=== PATIENT | female | born 1985 ===

== ENCOUNTER 2017-11-08 11:27 | Inpatient (IN) | payer MEDICAID ==
--- NOTE | 2017-11-08 12:05 | ED Physician Chart ---
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 Pain, A/N/V/D/C, fever, chills, or urinary s/s Historian:: Patient, Family Member Review:: Nurse's Note Reviewed ED Review of Systems - Review of Systems General/Constitutional: No fever, No chills, No weight loss, No weakness, No diaphoresis, No edema, No loss of appetite Skin: No skin lesions, No rash, No bruising Head: No headache, No light-headedness Eyes: No loss of vision, No pain, No diplopia ENT: No earache, No nasal drainage, No sore throat, No tinnitus Neck: No neck pain, No swelling, No thyromegaly, No stiffness, No mass noted Cardio Vascular: No chest pain, No palpitations, No PND, No orthopnea, No edema Pulmonary: No SOB, No cough, No sputum, No wheezing GI: No nausea, No vomiting, No diarrhea, No pain, No melena, No hematochezia, No constipation, No hematemesis G/U: No dysuria, No frequency, No hematuria, No nacturia Member Certification Manager: No vaginal discharge, No abnormal vaginal bleed, No contraction Musculoskeletal: No bone or joint pain, No back pain, No muscle pain Endocrine: No polyuria, No polydipsia Psychiatric: No prior psych history, No depression, Anxiety, No suicidal ideation, No homicidal ideation, No auditory hallucination, No visual hallucination Hematopoietic: No bruising, No lymphadenopathy Allergic/Immuno: No urticaria, No angioedema Neurological: No syncope, No focal symptoms, No weakness, No paresthesia, No headache, No seizure, No dizziness, No confusion, No vertigo ED Past Medical History - Past Medical History Obtainable: Yes Past Medical History: No significant medical hx Family History: None Social History: Smoker, Alcohol, No Drug Use, Surgical History: None Psychiatricy History: None Medication: Reviewed ED Physical Exam - Physical Examination General/Constitutional: Awake, Well-developed, well-nourished, Alert, No distress, GCS 15, Non-toxic appearing, Ambulatory Head: Atraumatic Eyes: Lids, conjuctiva normal, PERRL, EOMI Skin: Nl inspection, No rash, No skin lesions, No ecchymosis, Well hydrated, No lymphadenopathy ENMT: External ears, nose nl, TM canals nl, Nasal exam nl, Lips, teeth, gums nl , Oropharynx nl, Tonsils nl Neck: Nontender, Full ROM w/o pain, No JVD, No nuchal rigidity, No bruit, No mass, No stridor Other Neck comments:: supple; no meningeal signs; no cervical tenderness; no bruits Respiratory: Nl effort/Exclusion, Clear to Auscultation, No Wheeze/Rhonchi/Rales Cardio Vascular: RRR, No murmur, gallop, rubs, NL S1 S2, Carotid/Femoral/Distal pulses equal bilaterally GI: No tenderness/rebounding/guarding, No organomegaly, No hernia, Normal BS's, Nondistended, No mass/bruits, No McBurney tenderness Other GI comments:: no pulsatile masses : No CVA tenderness Extremities: No tenderness or effusion, Full ROM, normal strength in all extremities, No edema, Normal digits & nails Neuro/Psych: Alert/oriented, DTR's symmetric, Normal sensory exam, Normal motor strength, Judgement/insight normal, Mood normal, Normal gait, No focal deficits Misc: Normal back, No paraspinal tenderness ED Labs/Radiology/EKG Results - Lab Results Comments:: Na+: 134 - Radiology Results Comments:: NAD - EKG Interpretations EKG Time:: 12:45 Rate & Rhythm: 92; NSR Comments:: non-specific st-t changes ED Septic Shock - . Is Septic Shock (SBP<90, OR Lactate>4 mmol\L) present?: No ED Reassessment (Disposition) - Reassessment Reassessment Condition:: Improved - Diagnosis Diagnosis:: Dx: Hyponatremia; Dehydration; Alcohol Withdrawal; Alcholism; Anxiety Reaction; Substance Abuse - Aftercare/Follow up Instructions Aftercare/Follow-Up Instructions:: Counseled pt regarding lab results/diagnosis & need follow up, Counseled pt & family regarding lab results/diagnosis & need follow up - Patient Disposition Discharge/Transfer:: Acute Care w/in this hosp Accepting Physician:: Dr. Celis Time Called:: 1400 Time Responded:: 14:00 Admitted to:: Med/Surg Spoke to:: Dr. Celis Admitting Medical Physician:: Dr. Celis Condition at Disposition:: Stable, Improved
[2017-11-08] MEDS ORDERED: Sodium Chloride 0.9% 1,000 ML IV ONE (12:06)
[2017-11-08] MEDS ORDERED: Multivitamin Inj 10 ML, Thiamine HCL 100 MG, Magnesium Sulfate 2 GM, Folic Acid 1 MG in... IV ONE (12:09)
[2017-11-08 12:30] LABS: % BASOPHILS 0.1 % (0.0-2.0); % EOSINOPHILS 3.3 % (0.0-5.0); % LYMPHOCYTES 13.6 % (20.0-50.0); % MONOCYTES 6.1 % (2.0-10.0); % NEUTROPHILS 76.9 % (40.0-80.0); EOSINOPHILE ABSOLUTE 0.3 Th/cmm (0.1-0.4); HEMATOCRIT 38.3 % (41.0-60); HEMOGLOBIN 13.1 gm/dL (12-16); LYMPHOCYTE ABSOLUTE 1.1 Th/cmm (1.5-3.0); MEAN CELL VOLUME 83.5 fl (81-100); MEAN CORPUSCULAR HEMOGLOBIN 28.5 pg (27.0-31.0); MEAN CORPUSCULAR HGB CONC 34.2 pg (28.0-36.0); MEAN PLATELET VOLUME 7.1 fl; MONOCYTE ABSOLUTE 0.5 Th/cmm (0.3-1.0); NEUTROPHILE ABSOLUTE 5.9 Th/cmm (1.8-8.0); PLATELET COUNT 319 Th/cmm (150-400); RED BLOOD COUNT 4.59 Mil/cmm (3.80-5.10); RED CELL DISTRIBUTION WIDTH 13.2 % (11.5-20.0); WHITE BLOOD COUNT 7.8 Th/cmm (4.8-10.8)
[2017-11-08 12:47] LABS: ALB/GLOB RATIO 1.6 (1.0-1.8); ALBUMIN 4.1 gm/dL (3.7-5.3); ALKALINE PHOSPHATASE 61 U/L (34-104); ANION GAP 7.1 (7.0-16.0); BILIRUBIN,TOTAL 0.5 mg/dL (0.3-1.0); BUN - UREA NITROGEN 7 mg/dL (7-25); CALCIUM SERUM 8.9 mg/dL (8.6-10.3); CARBON DIOXIDE 25.1 mEq/L (21.0-31.0); CHLORIDE 106 mEq/L (98-107); CHOLESTEROL 140 mg/dL (<200); CREATININE - SERUM 0.6 mg/dL (0.6-1.2); CREATININE KINASE 91 U/L (30-223); GFR AFRICAN-AMERICAN > 60.0 ml/min (>90); GFR NON AFRICAN-AMERICAN > 60.0 ml/min; GLUCOSE 87 mg/dL (70-105); HDL -HIGH DENSITY LIPOPROTEIN 62 mg/dL (23-92); POTASSIUM SERUM 4.2 mEq/L (3.5-5.1); SGOT 23 U/L (13-39); SGPT/ALT 18 U/L (7-52); SODIUM SERUM 134 mEq/L (136-145); TOTAL PROTEIN,SERUM 6.7 gm/dL (6.0-8.3); TRIGLYCERIDES 128 mg/dL (<150)
[2017-11-08 12:59] LABS: INR 0.99 (0.5-1.4); PROTHROMBIN TIME (TEST) 10.3 SECONDS (9.5-11.5)
[2017-11-08 16:06] LABS: AMPHETAMINE URINE NEGATIVE (NEGATIVE); BARBITURATES URINE NEGATIVE (NEGATIVE); CANNABINOID THC NEGATIVE (NEGATIVE); COCAINE METABOLITE QUAL URINE NEGATIVE (NEGATIVE); METHADONE URINE NEGATIVE (NEGATIVE); METHAMPHETAMINES QUAL URINE NEGATIVE (NEGATIVE); OPIATES (MORPHINE) QUAL. URINE NEGATIVE (NEGATIVE); PHENCYCLIDINE (PCP) URINE NEGATIVE (NEGATIVE); TRICYCLICS (TCA) QUAL. URINE NEGATIVE (NEGATIVE)
[2017-11-08 16:07] LABS: BENZODIAZEPINES QUAL URINE POSITIVE (NEGATIVE)
[2017-11-08] MEDS: D5-0.45NS 1,000 ML IV SCH (23:31)
[2017-11-09 02:44] VITALS: BP 125/83
[2017-11-09 07:32] LABS: % BASOPHILS 0.7 % (0.0-2.0); % EOSINOPHILS 5.2 % (0.0-5.0); % LYMPHOCYTES 17.6 % (20.0-50.0); % MONOCYTES 8.1 % (2.0-10.0); % NEUTROPHILS 68.4 % (40.0-80.0); EOSINOPHILE ABSOLUTE 0.3 Th/cmm (0.1-0.4); HEMATOCRIT 35.7 % (41.0-60); MEAN CELL VOLUME 83.9 fl (81-100); MEAN CORPUSCULAR HEMOGLOBIN 28.2 pg (27.0-31.0); MEAN CORPUSCULAR HGB CONC 33.6 pg (28.0-36.0); MEAN PLATELET VOLUME 7.4 fl; MONOCYTE ABSOLUTE 0.5 Th/cmm (0.3-1.0); PLATELET COUNT 265 Th/cmm (150-400); RED BLOOD COUNT 4.25 Mil/cmm (3.80-5.10); RED CELL DISTRIBUTION WIDTH 13.3 % (11.5-20.0)
[2017-11-09 07:33] LABS: WHITE BLOOD COUNT 5.8 Th/cmm (4.8-10.8)
[2017-11-09 07:36] LABS: ALB/GLOB RATIO 1.5 (1.0-1.8); ALBUMIN 3.5 gm/dL (3.7-5.3); ALKALINE PHOSPHATASE 67 U/L (34-104); ANION GAP 8.8 (7.0-16.0); BILIRUBIN,TOTAL 0.3 mg/dL (0.3-1.0); BUN - UREA NITROGEN 11 mg/dL (7-25); CALCIUM SERUM 8.3 mg/dL (8.6-10.3); CARBON DIOXIDE 20.4 mEq/L (21.0-31.0); CHLORIDE 109 mEq/L (98-107); CREATININE - SERUM 0.6 mg/dL (0.6-1.2); GFR AFRICAN-AMERICAN > 60.0 ml/min (>90); GFR NON AFRICAN-AMERICAN > 60.0 ml/min; GLUCOSE 109 mg/dL (70-105); MAGNESIUM 2.3 mg/dL (1.9-2.7); POTASSIUM SERUM 4.2 mEq/L (3.5-5.1); SGOT 17 U/L (13-39); SGPT/ALT 14 U/L (7-52); SODIUM SERUM 134 mEq/L (136-145); TOTAL PROTEIN,SERUM 5.9 gm/dL (6.0-8.3)
[2017-11-09] MEDS: Thiamine 100 mg/mL 2mL Vial IM SCH (09:00)
[2017-11-09] MEDS: Multivitamin w/ Minerals Tab PO SCH (09:01)
[2017-11-09] MEDS: Pantoprazole 40 mg EC Tab PO SCH ×2 (11:05→16:23)
[2017-11-09] MEDS: D5-0.45NS 1,000 ML IV SCH ×2 (11:05)
--- NOTE | 2017-11-09 11:30 | History & Physical ---
ADMIT DATE: 11/09/2017 PATIENT'S IDENTIFICATION: A 32-year-old female. CHIEF COMPLAINT: Anxiety. "I want to quit drinking alcohol." HISTORY OF PRESENT ILLNESS: A 32-year-old female with longstanding history of alcohol abuse, has been going in and out of the Emergency Room, also has diagnosis of anxiety, depression, presented to Emergency Room at [facility] because of increasing anxiety and drinking heavily and wanted to quit alcohol. When the patient was arrived in the Emergency Room, the patient had an extreme anxiety and impending DT. The patient is now being admitted for further treatment. PAST MEDICAL HISTORY: Remarkable for depression. MEDICATIONS AT HOME: Lexapro. ALLERGIES: None. SOCIAL HISTORY: Lives with family. The patient has history of smoking cigarette and drinking alcohol use, denies any street drug use. FAMILY MEDICAL HISTORY: Remarkable for alcoholism. REVIEW OF SYSTEMS: The patient complained of nausea, vomiting, a little bit of blood in the vomit. Denies any headache. Denies any blurred vision or double vision. The patient is very tearful. Denies any chest pain. Denies any shortness of breath. Denies any palpitation. Denies any wheezing, dizziness. Denies any seizure or syncopal episode. Denies any hematemesis. Denies any hematochezia or melena. No vaginal discharge. PHYSICAL EXAMINATION: GENERAL: Alert, awake, oriented, lying in the bed without any acute distress. VITAL SIGNS: Temperature reported 97.4, pulse is 100, respiratory rate is 18, blood pressure 130/90. HEENT: Normocephalic, atraumatic. Extraocular muscles are intact. Tongue more pink and coated. Poor dentition noted. No oral lesion, no exudate. No sinus tenderness. External auditory canal and tympanic membranes are well visualized. NECK: Supple, no JVD, no hepatojugular reflex. No lymphadenopathy, thyromegaly, or carotid bruit. HEART: Both heart sounds are regular. No S3, no S4, no murmurs. CHEST: Lung equal in expansion, no wheezing, no crackles. ABDOMEN: Soft. No guarding, no rigidity. Bowel sounds are present. No palpable mass. EXTREMITIES: No edema, no cyanosis or clubbing present, +2, no calf tenderness noted. NEUROLOGIC: The patient is alert, awake, oriented to time, place, person. 2-12 cranial nerves are intact. Power in upper and lower extremities 5+. Sensory to light touch intact. Babinski in both toes are going down. No cerebellar sign. AVAILABLE DIAGNOSTIC DATA: Performed in the Emergency Room has been reviewed. CLINICAL IMPRESSION: 1. Alcoholism. 2. Anxiety, depression. 3. Alcohol-induced gastritis. 4. Impending DT. PLAN: 1. Admit this patient to telemetry unit. 2. IV fluid. 3. Multivitamin, folic acid, thiamine. 4. Librium. 5. P.r.n. Ativan. 6. Protonix. 7. Psych consult. 8. Antidepression. 9. General nursing care. 10. Cardiac monitoring. 11. Follow lab. 12. Follow consult recommendation. 13. Care plan reviewed and discussed with staff. JOB# [id number]
--- NOTE | 2017-11-10 01:08 | History & Physical ---
ADMIT DATE: 11/09/2017 HISTORY OF PRESENT ILLNESS: The patient is a 32-year-old female, very long history of alcoholism years, if not decades. The patient is drinking 4 bottles of wine religiously for the past 6 months, bouts of sobriety for as long as a year, drinking about 16 to 20 drink equivalents per day, very depressed, sad, alcohol affecting her mood. Note, she has been depressed for many years. Sleeping "off and on". Okay appetite. She is hopeful. She is motivated. She wants to go to residential. When she leaves the hospital, very fearful of relapsing. The patient notes she had a seizure about 2 years ago from withdrawal. No delirium tremens. No perceptual disturbances. She has never been in the ICU before. PAST PSYCH HISTORY: No suicide history, but long history of depression. FAMILY HISTORY: Aunts and uncles alcoholism. SOCIAL HISTORY: Born in [place], engaged, fiancee at bedside. His name is Art. Also smoking cigarettes along with alcohol. The patient has an [id number] son. Psychoeducation discussed about the importance of quitting, especially nicotine given that she is still smoking, increased risk of asthma for the son. The patient has been to AA in the past. No current participation. MEDICATIONS: Noted. MEDICAL HISTORY: Noted. MENTAL STATUS EXAMINATION: Stated age. Fair eye contact. Speech within normal limits. Mood depressed. Affect tearful. Thought processes were linear. No SI, no HI. No psychotic symptoms. Insight and judgment fair. She is very motivated to stop drinking. PROVISIONAL DIAGNOSES: Major depression, recurrent, unspecified; anxiety, unspecified; alcohol use disorder, severe; substance-induced mood disorder. UNDER MEDICAL: Please see full H and P. RECOMMENDATIONS AND PLAN: Vitals reviewed. The patient does seem to be detoxing to some extent from alcohol. We will continue to monitor very closely. We will also increase dosing of Librium. She can tolerate a higher dose and in fact needs a higher dose. Her dose equivalent needs to be replacing the 16-20 drinks that she was drinking per day. We will monitor for any signs and symptoms of sedation. We will also start Neurontin and continue Zoloft and the patient may benefit from clonidine. Will also contact social work to see if she can be accepted to a residential. JOB# [id number]
[2017-11-10 06:00] LABS: % BASOPHILS 0.6 % (0.0-2.0); % EOSINOPHILS 6.5 % (0.0-5.0); % LYMPHOCYTES 23.6 % (20.0-50.0); % MONOCYTES 10.7 % (2.0-10.0); % NEUTROPHILS 58.6 % (40.0-80.0); EOSINOPHILE ABSOLUTE 0.3 Th/cmm (0.1-0.4); HEMATOCRIT 37.9 % (41.0-60); HEMOGLOBIN 12.6 gm/dL (12-16); LYMPHOCYTE ABSOLUTE 1.1 Th/cmm (1.5-3.0); MEAN CELL VOLUME 84.5 fl (81-100); MEAN CORPUSCULAR HEMOGLOBIN 28.1 pg (27.0-31.0); MEAN CORPUSCULAR HGB CONC 33.2 pg (28.0-36.0); MEAN PLATELET VOLUME 7.3 fl; MONOCYTE ABSOLUTE 0.5 Th/cmm (0.3-1.0); NEUTROPHILE ABSOLUTE 2.6 Th/cmm (1.8-8.0); PLATELET COUNT 269 Th/cmm (150-400); RED BLOOD COUNT 4.48 Mil/cmm (3.80-5.10); RED CELL DISTRIBUTION WIDTH 13.2 % (11.5-20.0); WHITE BLOOD COUNT 4.5 Th/cmm (4.8-10.8)
[2017-11-10 06:10] LABS: ALB/GLOB RATIO 1.5 (1.0-1.8); ALBUMIN 3.8 gm/dL (3.7-5.3); ALKALINE PHOSPHATASE 79 U/L (34-104); ANION GAP 10.5 (7.0-16.0); BILIRUBIN,TOTAL 0.3 mg/dL (0.3-1.0); BUN - UREA NITROGEN 8 mg/dL (7-25); CALCIUM SERUM 8.8 mg/dL (8.6-10.3); CARBON DIOXIDE 20.6 mEq/L (21.0-31.0); CHLORIDE 105 mEq/L (98-107); CREATININE - SERUM 0.6 mg/dL (0.6-1.2); GFR AFRICAN-AMERICAN > 60.0 ml/min (>90); GFR NON AFRICAN-AMERICAN > 60.0 ml/min; GLUCOSE 104 mg/dL (70-105); POTASSIUM SERUM 4.1 mEq/L (3.5-5.1); SGOT 16 U/L (13-39); SGPT/ALT 12 U/L (7-52); SODIUM SERUM 132 mEq/L (136-145); TOTAL PROTEIN,SERUM 6.4 gm/dL (6.0-8.3)
[2017-11-10] MEDS: Pantoprazole 40 mg EC Tab PO SCH (08:33)
[2017-11-10] MEDS: Multivitamin w/ Minerals Tab PO SCH (08:33)
[2017-11-10] MEDS: Thiamine 100 mg/mL 2mL Vial IM SCH (08:33)
--- NOTE | 2017-11-10 09:18 | General Progress Note ---
Subjective - Review of Systems Subjective: Patient is seen and examined. Patient is feeling better. psych input greatly appreciated. Objective - Results Result Diagrams: 11/10/17 05:06 11/10/17 05:06 Recent Labs: Laboratory Last Values WBC 4.5 Th/cmm (4.8-10.8) L D 11/10/17 05:06 RBC 4.48 Mil/cmm (3.80-5.10) 11/10/17 05:06 Hgb 12.6 gm/dL (12-16) 11/10/17 05:06 Hct 37.9 % (41.0-60) L 11/10/17 05:06 MCV 84.5 fl (81-100) 11/10/17 05:06 MCH 28.1 pg (27.0-31.0) 11/10/17 05:06 MCHC Differential 33.2 pg (28.0-36.0) 11/10/17 05:06 RDW 13.2 % (11.5-20.0) 11/10/17 05:06 Plt Count 269 Th/cmm (150-400) 11/10/17 05:06 MPV 7.3 fl 11/10/17 05:06 Neutrophils % 58.6 % (40.0-80.0) 11/10/17 05:06 Lymphocytes % 23.6 % (20.0-50.0) 11/10/17 05:06 Monocytes % 10.7 % (2.0-10.0) H 11/10/17 05:06 Eosinophils % 6.5 % (0.0-5.0) H 11/10/17 05:06 Basophils % 0.6 % (0.0-2.0) 11/10/17 05:06 PT 10.3 SECONDS (9.5-11.5) 11/08/17 12:19 INR 0.99 (0.5-1.4) 11/08/17 12:19 Sodium 132 mEq/L (136-145) L 11/10/17 05:06 Potassium 4.1 mEq/L (3.5-5.1) 11/10/17 05:06 Chloride 105 mEq/L (98-107) 11/10/17 05:06 Carbon Dioxide 20.6 mEq/L (21.0-31.0) L 11/10/17 05:06 Anion Gap 10.5 (7.0-16.0) 11/10/17 05:06 BUN 8 mg/dL (7-25) 11/10/17 05:06 Creatinine 0.6 mg/dL (0.6-1.2) 11/10/17 05:06 Est GFR ( Amer) > 60.0 ml/min (>90) 11/10/17 05:06 Est GFR (Non-Af Amer) > 60.0 ml/min 11/10/17 05:06 BUN/Creatinine Ratio 13.3 11/10/17 05:06 Glucose 104 mg/dL (70-105) 11/10/17 05:06 Calcium 8.8 mg/dL (8.6-10.3) 11/10/17 05:06 Magnesium 2.3 mg/dL (1.9-2.7) 11/09/17 06:32 Total Bilirubin 0.3 mg/dL (0.3-1.0) 11/10/17 05:06 AST 16 U/L (13-39) 11/10/17 05:06 ALT 12 U/L (7-52) 11/10/17 05:06 Alkaline Phosphatase 79 U/L (34-104) 11/10/17 05:06 Creatine Kinase 91 U/L (30-223) 11/08/17 12:19 Troponin I < 0.01 ng/mL (0.01-0.05) L 11/08/17 12:19 B-Natriuretic Peptide 16.1 pg/mL (5.0-100.0) 11/08/17 12:19 Total Protein 6.4 gm/dL (6.0-8.3) 11/10/17 05:06 Albumin 3.8 gm/dL (3.7-5.3) 11/10/17 05:06 Globulin 2.6 gm/dL 11/10/17 05:06 Albumin/Globulin Ratio 1.5 (1.0-1.8) 11/10/17 05:06 Triglycerides 128 mg/dL (<150) 11/08/17 12:19 Cholesterol 140 mg/dL (<200) 11/08/17 12:19 LDL Cholesterol Direct 69 mg/dL (75-193) L 03/12/18 12:19 HDL Cholesterol 62 mg/dL (23-92) 11/08/17 12:19 Serum , Qual NEGATIVE (NEGATIVE) 11/08/17 12:19 Urine Opiates Screen NEGATIVE (NEGATIVE) 11/08/17 14:15 Urine Methadone Screen NEGATIVE (NEGATIVE) 11/08/17 14:15 Ur Barbiturates Screen NEGATIVE (NEGATIVE) 11/08/17 14:15 Ur Tricyclics Screen NEGATIVE (NEGATIVE) 11/08/17 14:15 Ur Phencyclidine Scrn NEGATIVE (NEGATIVE) 11/08/17 14:15 Amphetamines Screen NEGATIVE (NEGATIVE) 11/08/17 14:15 U Methamphetamines Scrn NEGATIVE (NEGATIVE) 11/08/17 14:15 U Benzodiazepines Scrn POSITIVE (NEGATIVE) H 11/08/17 14:15 U Cocaine Metab Screen NEGATIVE (NEGATIVE) 11/08/17 14:15 U Cannabinoids Screen NEGATIVE (NEGATIVE) 11/08/17 14:15 Ethyl Alcohol < 10 mg/dL (0-10) 11/08/17 12:19 - Physical Exam Vitals and I&O: Vital Signs Temp 97.3 F 11/10/17 08:00 Pulse 72 11/10/17 08:00 Resp 18 11/10/17 08:00 BP 113/71 11/10/17 08:00 Pulse Ox 95 11/10/17 08:00 Intake & Output 11/09/17 11/10/17 11/10/17 18:59 06:59 18:59 Intake Total 1650 Balance 1650 Weight (lbs) 80.286 kg 77.973 kg Intake: Intake, IV Amount 1000 D5-0.45NS 1,000 ml @ 125 1000 mls/hr IV .Q8H [facility] Rx#: [id number] Oral 650 Other: # Voids 3 # Bowel Movements 1 Active Medications: Current Medications Acetaminophen (Tylenol) 650 mg PO Q4H PRN PRN Reason: Mild Pain/Headache/T above 101 Stop: 01/07/18 18:36 Last Admin: 11/09/17 17:37 Dose: 650 mg Chlordiazepoxide (Librium) 50 mg PO TID SANDEEP PRN Reason: Protocol Stop: 01/08/18 11:46 Last Admin: 11/09/17 20:50 Dose: 50 mg Folic Acid (Folate) 1 mg PO DAILY [facility] Stop: 01/08/18 08:59 Last Admin: 11/10/17 08:33 Dose: 1 mg Gabapentin (Neurontin) 100 mg PO TID [facility] Stop: 01/08/18 13:59 Last Admin: 11/10/17 08:33 Dose: 100 mg Dextrose/Sodium Chloride (D5-0.45ns) 1,000 mls @ 125 mls/hr IV .Q8H [facility] Stop: 01/07/18 18:44 Last Admin: 11/09/17 11:05 Dose: 125 mls/hr Lorazepam (Ativan) 1 mg IVP Q4H PRN; Protocol PRN Reason: Anxiety/Agitation Stop: 01/07/18 18:36 Last Admin: 11/10/17 08:29 Dose: 1 mg Ondansetron HCl (Zofran) 4 mg IVP Q6H PRN PRN Reason: Nausea / Vomiting Stop: 01/07/18 18:36 Pantoprazole Sodium (Protonix) 40 mg PO BID [facility] Stop: 01/08/18 10:44 Last Admin: 11/10/17 08:33 Dose: 40 mg Sertraline HCl (Zoloft) 50 mg PO DAILY SANDEEP PRN Reason: Protocol Stop: 01/08/18 12:59 Last Admin: 11/10/17 08:32 Dose: 50 mg Thiamine HCl (Vitamin B1) 100 mg IM DAILY [facility] Stop: 01/08/18 08:59 Last Admin: 11/10/17 08:33 Dose: 100 mg General: Alert, Oriented x3, Cooperative HEENT: Atraumatic, PERRLA, EOMI, Mucous membr. moist/pink Neck: Supple, JVD Cardiovascular: Regular rate, Normal S1, Normal S2 Lungs: Clear to auscultation Abdomen: Bowel sounds, Soft Neurological: Normal gait Assessment/Plan - Problem List Patient Problems: All Active Problems ANXIETY, TACHYCARDIA, DYSPNEA, TREMORS (Acute) - Assessment Assessment: Depression and anxiety. Alcohol dependance. No sign symptoms of alcohol withdrawal Alcohol induced gastritis. - Plan Plan: DC IVF Stable for dc to psych or residential Continue current care Discussed with patient and her boy friend.
== END 2017-11-10 13:13 | disposition short-term general hospital (02) | DRG 756 ==
LOC: ER 11:27 → TELE 21:00
PROVIDERS: ADMIT Internal Medicine; ATTEND Internal Medicine
DX: F41.1 Generalized anxiety disorder (principal); F10.231 Alcohol dependence with withdrawal delirium; F33.9 Major depressive disorder, recurrent, unspecified; E87.1 Hypo-osmolality and hyponatremia; K29.20 Alcoholic gastritis without bleeding; E86.0 Dehydration; F17.210 Nicotine dependence, cigarettes, uncomplicated; F19.10 Other psychoactive substance abuse, uncomplicated; Z79.899 Other long term (current) drug therapy; F19.14 Other psychoactive substance abuse with psychoactive substance-induced mood disorder; Z81.1 Family history of alcohol abuse and dependence
CPT/HCPCS: 36415-UA; 80053-TC; 80061-TC; 80307; 80320-TC; 82550-TC; 83735-TC; 83880-TC; 84484-TC; 84703-TC; 85025-TC; 85610-TC; 93005; 94760; 96374; 96375; J2060; J3411; J3475; J7030; X6598; Z7610